=== PATIENT | female | born 1950 | race Caucasian/White ===

== ENCOUNTER → 2018-10-21 | Outpatient (REF) | payer MEDICARE, OTHER ==
[~2018-10-21] MED LIST: HYDROCHLORO25 MG/TAB PO; LORTAB 7.57.5 MG PO; MACRODANTIN100 MG PO; PHENAZOPYRID200 MG PO; PREDNISONE20 MG PO; PRILOSEC20 MG/CAP PO
[2018-10-21 12:10] LABS: HEMATOCRIT 48.6 % (37.0-47.0); HEMOGLOBIN 15.7 g/dl (12.0-16.0); IMMATURE GRANULOCYTES 0.5 % (0.0-5.0); MEAN CORPUSCULAR HGB 28.8 pG CALC (26.0-32.0); MEAN CORPUSCULAR HGB CONC 32.3 g/L CALC (32.0-36.0); NEUT# 3.73 thou/uL (2.00-7.15); RED BLOOD COUNT 5.46 mill/uL (4.20-5.60); RED CELL DISTRI WIDTH 12.5 % (11.5-15.5)
[2018-10-21 12:35] LABS: ALBUMIN 4.4 g/dL (3.2-5.0); ALKALINE PHOSPHATASE 85 u/l (38-126); ANION GAP 16 (6-22 (CALC)); BILIRUBIN, TOTAL 1.1 mg/dL (0.0-1.4); BUN 20 mg/dL (8-23); BUN/CREATININE RATIO 28 (12-20 (CALC)); CARBON DIOXIDE 25 mmol/l (22-30); CHLORIDE 99 mmol/l (95-108); CREATININE 0.7 mg/dL (0.5-1.0); GFR > 60 ML/MIN (>=60 (CALC)); GFR FOR AFR.AMER. > 60 ML/MIN (>=60 (CALC)); POTASSIUM 4.2 mmol/l (3.5-5.1); SGOT/AST 105 u/l (9-36); SODIUM 136 mmol/l (137-146)
== END | disposition home or self-care (01) ==
LOC: LAB 11:14
PROVIDERS: ATTEND Internal Medicine
DX: D47.3 Essential (hemorrhagic) thrombocythemia (principal); I10 Essential (primary) hypertension

== ENCOUNTER → 2018-10-24 | Outpatient (REF) | payer MEDICARE, OTHER | END | disposition home or self-care (01) | LOC: DI 12:34 | PROVIDERS: ATTEND Internal Medicine | DX: Z72.0 Tobacco use (principal) ==

== ENCOUNTER → 2018-10-31 | Outpatient (REF) | payer MEDICARE, OTHER | END | disposition home or self-care (01) | LOC: RT 10:10 | PROVIDERS: ATTEND Internal Medicine | DX: D75.1 Secondary polycythemia (principal); R05 Cough ==

== ENCOUNTER 2021-10-19 19:23 | Emergency (ER) | payer MEDICARE, OTHER ==
[~2021-10-19] VITALS: Ht 165.1 cm; Wt 93.0 kg
[2021-10-19 22:50] VITALS: BP 156/76
[2021-10-19 22:50] LABS: HEMATOCRIT 51.8 % (37.0-47.0); HEMOGLOBIN 16.8 g/dl (12.0-16.0); IMMATURE GRANULOCYTES 0.2 % (0.0-5.0); MEAN CELL VOLUME 88.4 fL CALC (80.0-100.0); MEAN CORPUSCULAR HGB 28.7 pG CALC (26.0-32.0); MEAN CORPUSCULAR HGB CONC 32.4 g/dL CAL (32.0-36.0); NEUT# 6.22 thou/uL (2.00-7.15); RED BLOOD COUNT 5.86 mill/uL (4.20-5.60); RED CELL DISTRI WIDTH 12.6 % (11.5-15.5)
[2021-10-19 23:01] VITALS: BP 139/85
[2021-10-19 23:16] LABS: ALBUMIN 4.3 g/dL (3.2-5.0); ALKALINE PHOSPHATASE 100 u/l (38-126); BILIRUBIN, TOTAL 0.6 mg/dL (0.0-1.4); BUN 19 mg/dL (8-23); BUN/CREATININE RATIO 29 (12-20 (CALC)); CHLORIDE 105 mmol/l (95-108); CREATININE 0.7 mg/dL (0.5-1.0); GFR > 60 ML/MIN (>=60 (CALC)); GFR FOR AFR.AMER. > 60 ML/MIN (>=60 (CALC)); SGOT/AST 34 u/l (9-36); SODIUM 141 mmol/l (137-146); TOTAL PROTEIN 7.4 g/dL (6.3-8.2)
[2021-10-19 23:17] LABS: ANION GAP 16 (6-22 (CALC)); CARBON DIOXIDE 23 mmol/l (22-30)
[2021-10-20] MEDS ORDERED: LOMOTIL2.5 MG PO (01:34)
[2021-10-20 01:35] VITALS: BP 149/90
[2021-10-20 01:41] VITALS: BP 149/91
== END 2021-10-20 01:41 | disposition home or self-care (01) ==
LOC: ED 19:23
PROVIDERS: Family Medicine
DX: R19.7 Diarrhea, unspecified (principal); I10 Essential (primary) hypertension; K21.9 Gastro-esophageal reflux disease without esophagitis